=== PATIENT | female | born 1970 | race African-American/Black ===

== ENCOUNTER → 2017-11-14 | Outpatient (CLI) | payer OTHER | LOC: WI 13:55 | PROVIDERS: ATTEND Nurse Practitioner Family | DX: Z12.31 Encounter for screening mammogram for malignant neoplasm of breast (principal); Z53.8 Procedure and treatment not carried out for other reasons | CPT/HCPCS: 77067 ==

== ENCOUNTER → 2018-01-06 | Outpatient (CLI) | payer OTHER ==
--- NOTE | 2018-01-06 15:40 | RADIOLOGY REPORT (SQ) ---
EXAM DESCRIPTION: U/S OB TRANSVAGINAL W/O DOP COMPLETED DATE/TIME: 01/06/2018 3:08 pm REASON FOR STUDY: LESS THAN 8 WEEKS GESTATION OF (Z3A.01) Z3A.01 LESS THAN 8 WEEKS GESTAT ION OF COMPARISON: None. TECHNIQUE: Transvaginal static and realtime grayscale images acquired of the pelvis. Additional david cted spectral and color Doppler images recorded. All images stored on PACs. BHCG: Not available. LIMITATIONS: None. FINDINGS: UTERUS: No visualized intrauterine . RIGHT ADNEXA: Normal ovary with normal vascular flow. No adnexal free fluid. No adnexal masses. LEFT ADNEXA: Normal ovary with normal vascular flow. No adnexal free fluid. No adnexal masses. FREE FLUID: None. OTHER: Small fluid collection in the cervix. IMPRESSION: NO VISUALIZED INTRA- OR EXTRAUTERINE . SMALL FLUID COLLECTION IN THE CERVIX. THIS COULD BE A NABOTHIAN CYST. ALTERNATIVELY, THIS COULD REP RESENT A TINY GESTATIONAL SAC IN WHICH CASE THIS IS AN ABNORMAL LOCATION AND WOULD INDICATE IN PROGRESS. bHCG LEVEL NOT AVAILABLE FOR CORRELATION WITH US FINDINGS. ECTOPIC CANNOT BE EXCLUDED. FOLLOW-UP ULTRASOUND AND SERIAL BHCG LEVELS STRONGLY RECOMMENDED TO ACCURATELY ASSESS STATU S. TECHNICAL DOCUMENTATION: JOB ID: [id number] [employer]- All Rights Reserved Reading location - IP/workstation name: [employer]-[facility] INCLUDES THE [facility]
== END ==
LOC: RAD 13:10
PROVIDERS: ATTEND Physician Assistant
DX: O20.9 Hemorrhage in early pregnancy, unspecified (principal); Z3A.01 Less than 8 weeks gestation of pregnancy
CPT/HCPCS: 36415; 76817; 84702

== ENCOUNTER 2018-11-17 09:38 | Day surgery (SDC) | payer OTHER ==
[~2018-11-17 09:38] MED LIST: PROPOFOL INJ 200 MG/20 ML VIAL IV ONE
[2018-11-17 11:12] VITALS: BP 125/80
--- NOTE | 2018-11-17 13:12 | Operative Report ---
Operative Report DATE OF SURGERY: 11/17/18 Operative Report: The risks, benefits and alternatives of the procedure including the risks of bleeding, perforation requiring surgery have been explained to the patient in detail and informed consent has been obtained. Patient is placed in a left lateral decubital position. Timeout was called. Propofol medication is administered. Rectal examination is done which did not reveal any masses, tears or fissures. An Olympus videoscope was introduced into the patient's rectum. The scope was then carefully advanced all the way to the cecum. The cecum was identified by the usual anatomical landmarks including the ileocecal valve as well as the appendiceal office. Photodocumentation is obtained. The scope was then sequentially pulled back via the various segments of the colon including the ascending colon, hepatic flexure, transverse colon, splenic flexure, descend ing colon and finally into the rectosigmoid portions of the colon. Retroflexion maneuvers performed. The risks benefits and alternatives of the procedure explained to the patient in detail and informed consent is obtained.A GIF Olympus video scope was inserted into the patient's mouth and hypopharynx, the esophagus is identified intubated and insufflated, the scope was then advanced through the esophagus stomach and duodenum, retroflexion maneuver is done, the esophagus stomach and first and second portions of the duodenum examined. PREOPERATIVE DIAGNOSIS: Blood in stool. Personal history of gastric ulcer POSTOPERATIVE DIAGNOSIS: Gastric erosions status post biopsy. Hiatal hernia. Esophagitis versus Crandall's status post biopsy. Colon polyp noted in the ascending colon that was removed via snare polypectomy and retrieved. Internal hemorrhoids OPERATION: Colonoscopy with snare polypectomy. EGD with biopsy SURGEON: BUD TOUSSAINT ANESTHESIA: LMAC TISSUE REMOVED OR ALTERED: As noted above. COMPLICATIONS: None. ESTIMATED BLOOD LOSS: None. INTRAOPERATIVE FINDINGS: As noted above. PROCEDURE: Patient tolerated the procedure well. No immediate postprocedure comp occasions are noted. Patient discharged in good condition. Discharge date 11/17/2018. Discharge diet: Regular. Discharge activity: Regular. 2 to 3-week follow-up to discuss findings. Patient is instructed to call the office or proceed to the emergency room should there be any further proximal questions. Wait on the pathology. Patient will likely need 3 to 5-year surveillance colonoscopy depending on the pathology of the polyp.
== END 2018-11-17 10:52 | disposition home or self-care (01) ==
LOC: END 09:38
PROVIDERS: ATTEND Internal Medicine Gastroenterology
DX: K44.9 Diaphragmatic hernia without obstruction or gangrene (principal); K92.1 Melena; D12.2 Benign neoplasm of ascending colon; K64.8 Other hemorrhoids; K31.9 Disease of stomach and duodenum, unspecified; E66.9 Obesity, unspecified; Z68.30 Body mass index [BMI] 30.0-30.9, adult
CPT/HCPCS: 43239; 45385; 88305 ×2; J2704; 813